=== PATIENT | female | born 1970 | race African-American/Black ===

== ENCOUNTER 2017-09-16 08:31 | Observation (INO) | payer MEDICAID ==
[~2017-09-16] VITALS: Ht 152.4 cm; Wt 81.5 kg
[~2017-09-16 08:31] MED LIST: CANA100T PO; EMPA1TAB PO; EXEN1INJ SQ; GLUCOMTESTSTRIPS XX; METF500 PO; ONETMIS7; ONETOUCH ULTRAULTRA
[2017-09-16 08:32] VITALS: BP 138/88; PULSE 73; RESP 16; TEMP 99.1; O2SAT 99
[2017-09-16] MEDS ORDERED: SODIUM CHLORIDE 0.9% FLUSH 10 ML FLUSH IVF PRN (09:30)
--- NOTE | 2017-09-16 09:42 | PD ---
HPI Chief Complaint: Chest Pain Time Seen by Provider: 09:25 Travel History International Travel<30 days: No Contact w/Intl Traveler<30days: No Traveled to known affect area: No History of Present Illness HPI 47-year-old female came to the emergency room with history of right sided chest pain that started this morning when she woke up. She has never had this kind of pain in the past. She describes the pain as a dull ache. No radiation of the pain. As per her the pain is worse when she moves or takes a deep breath in. Patient has not done anything out of the ordinary physically to cause the pain. She is not on any medications. Patient says 2 years ago she was told she has diabetes but has never taken any medications. No history of shortness of breath. No history of syncopal episode or diaphoresis. 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 Patient is a not a smoker. No family history of coronary artery disease. Patient says that she had a stress test when she was many years ago. No recent surgery or procedures. No recent long distance travel or prolonged immobilization. Vital signs were stable. [facility] Past Medical History Narrative Medical List of her past medical, surgical, social and family history is reviewed from the nursing note. Diabetes: Yes Patient Takes Glucophage: No Tetanus Vaccination: > 5 Years Influenza Vaccination: Yes ?: Not : 1 Para: 1 Tubal Ligation: Yes Past Surgical History Section: Yes Social History Alcohol Use: No Tobacco Use: No Substance Use: No Allergies-Medications (Allergen,Severity, Reaction): Coded Allergies: No Known Allergies (Verified Allergy, Unknown, 09/16/17) Comments No known drug allergies. Reported Meds & Prescriptions Reported Meds & Active Scripts Active Ibuprofen 600 Mg Tab 600 Mg PO Q8HR PRN 3 Days Take with food. Lisinopril 5 Mg Tab 5 Mg PO DAILY Metformin (Metformin HCl) 500 Mg Tab 500 Mg PO BIDPC Narrative Medication List of her home medications reviewed from the nursing note. Review of Systems Except as stated in HPI: all other systems reviewed are Neg Cardiovascular: Positive: Chest Pain or Discomfort Physical Exam Narrative GENERAL: Awake, alert, obese, mild distress SKIN: Focused skin assessment warm/dry. HEAD: Atraumatic. Normocephalic. EYES: Pupils equal and round. No scleral icterus. No injection or drainage. ENT: No nasal bleeding or discharge. Mucous membranes pink and moist. NECK: Trachea midline. No JVD. CARDIOVASCULAR: Regular rate and rhythm. No murmur appreciated. RESPIRATORY: No accessory muscle use. Clear to auscultation. Breath sounds equal bilaterally. GASTROINTESTINAL: Abdomen soft, non-tender, nondistended. Hepatic and splenic margins not palpable. MUSCULOSKELETAL: No obvious deformities. No clubbing. No cyanosis. No edema. NEUROLOGICAL: Awake and alert. No obvious cranial nerve deficits. Motor grossly within normal limits. Normal speech. PSYCHIATRIC: Appropriate mood and affect; insight and judgment normal. Data Data Last Documented VS Vital Signs Date Time Temp Pulse Resp B/P (MAP) Pulse Ox O2 Delivery O2 Flow Rate FiO2 09/16/17 10:27 120/79 (93) 120/86 (97) 09/16/17 09:01 Room Air 09/16/17 08:32 99.1 73 16 99 Orders Orders Electrocardiogram (09/16/17 ) Basic Metabolic Panel (Bmp) (09/16/17 09:28) Ckmb (Isoenzyme) Profile (09/16/17 09:28) Complete Blood Count With Diff (09/16/17 09:28) Magnesium (Mg) (09/16/17 09:28) Prothrombin Time / Inr (Pt) (09/16/17 09:28) Act Partial Throm Time (Ptt) (09/16/17 09:28) Troponin I (09/16/17 09:28) Chest, Single Ap (09/16/17 09:28) Ecg Monitoring (09/16/17 09:28) Bilateral Bp Monitoring (09/16/17 09:28) Iv Access Insert/Monitor (09/16/17 09:28) Oximetry (09/16/17 09:28) Oxygen Administration (09/16/17 09:28) Sodium Chloride 0.9% Flush (Ns Flush) (09/16/17 09:30) Aspirin Chew (Aspirin Chew) (09/17/17 09:00) Aspirin Chew (Aspirin Chew) (09/16/17 10:00) D-Dimer (09/16/17 09:57) Metformin (Glucophage) (09/16/17 10:45) Admit Order (Ed Use Only) (09/16/17 10:47) Labs Laboratory Tests Test 09/16/17 09:40 White Blood Count 7.1 TH/MM3 Red Blood Count 5.18 MIL/MM3 Hemoglobin 13.7 GM/DL Hematocrit 41.7 % Mean Corpuscular Volume 80.4 FL Mean Corpuscular Hemoglobin 26.4 PG Mean Corpuscular Hemoglobin Concent 32.8 % Red Cell Distribution Width 13.6 % Platelet Count 264 TH/MM3 Mean Platelet Volume 8.8 FL Neutrophils (%) (Auto) 57.2 % Lymphocytes (%) (Auto) 33.0 % Monocytes (%) (Auto) 7.1 % Eosinophils (%) (Auto) 1.8 % Basophils (%) (Auto) 0.9 % Neutrophils # (Auto) 4.1 TH/MM3 Lymphocytes # (Auto) 2.3 TH/MM3 Monocytes # (Auto) 0.5 TH/MM3 Eosinophils # (Auto) 0.1 TH/MM3 Basophils # (Auto) 0.1 TH/MM3 CBC Comment DIFF FINAL Differential Comment Prothrombin Time 10.7 SEC Prothromb Time International Ratio 1.0 RATIO Activated Partial Thromboplast Time 23.3 SEC D-Dimer Quantitative (PE/DVT) 0.43 MG/L FEU Blood Urea Nitrogen 10 MG/DL Creatinine 0.68 MG/DL Random Glucose 297 MG/DL Calcium Level 9.7 MG/DL Magnesium Level 2.0 MG/DL Sodium Level 136 MEQ/L Potassium Level 3.9 MEQ/L Chloride Level 102 MEQ/L Carbon Dioxide Level 25.4 MEQ/L Anion Gap 9 MEQ/L Estimat Glomerular Filtration Rate 113 ML/MIN Hemoglobin A1c 11.3 % Total Creatine Kinase 56 U/L Troponin I LESS THAN 0.02 NG/ML MDM Medical Decision Making Medical Screen Exam Complete: Yes Emergency Medical Condition: Yes Medical Record Reviewed: Yes Interpretation(s) Twelve-lead EKG was reviewed by me. Normal sinus rhythm, normal axis, nonspecific ST-T wave changes. Heart rate of 74 bpm. Differential Diagnosis ACS, non-STEMI, PE, nonspecific chest pain Narrative Course 10:45 AM blood test results of back and patient's blood sugar is significantly high. I have given her a dose of metformin. Patient certainly should get a workup to rule out ACS given her long-standing untreated diabetes. I will admit her to the chest pain center to be seen by the statistical financial analyst. Procedures EKG Prior to Arrival: No Diagnosis Primary Impression: Chest pain Qualified Codes: R07.9 - Chest pain, unspecified Additional Impressions: Diabetes Qualified Codes: E11.9 - Type 2 diabetes mellitus without complications Hyperglycemia due to type 2 diabetes mellitus Qualified Codes: E11.65 - Type 2 diabetes mellitus with hyperglycemia Admitting Information Admitting Physician Requests: Observation Scripts Ibuprofen (Ibuprofen) 600 Mg Tab 600 MG PO Q8HR Y for PAIN for 3 Days, TAB 0 Refills Take with food. Prov: Brittany Sullivan 09/16/17 Lisinopril (Lisinopril) 5 Mg Tab 5 MG PO DAILY for Blood Pressure Management, #30 TAB 2 Refills Prov: Brittany Sullivan 09/16/17 Metformin (Metformin) 500 Mg Tab 500 MG PO BIDPC for Blood Sugar Management, #60 TAB 2 Refills Prov: Brittany Sullivan 09/16/17 Alley Nation MD Sep 16, 2017 09:42
[2017-09-16] MEDS ORDERED: ASPIRIN 81 MG CHEW TAB CHEW ONE (10:00)
[2017-09-16 10:09] LABS: AUTOMATED NEUTROPHIL # 4.1 TH/MM3 (1.8-7.7); BASOPHIL # 0.1 TH/MM3 (0-0.2); BASOPHIL % 0.9 % (0.0-2.0); EOSINOPHIL # 0.1 TH/MM3 (0-0.4); EOSINOPHIL % 1.8 % (0.0-4.0); HEMATOCRIT 41.7 % (35.0-46.0); HEMOGLOBIN 13.7 GM/DL (11.6-15.3); LYMPHOCYTE # 2.3 TH/MM3 (1.0-4.8); MEAN CELL VOLUME 80.4 FL (80.0-100.0); MEAN CORPUSCULAR HEMOGLOBIN 26.4 PG (27.0-34.0); MEAN CORPUSCULAR HGB CONC 32.8 % (32.0-36.0); MEAN PLATELET VOLUME 8.8 FL (7.0-11.0); MONO % 7.1 % (0.0-8.0); MONOCYTE # 0.5 TH/MM3 (0-0.9); NEUT % 57.2 % (16.0-70.0); PLATELET COUNT 264 TH/MM3 (150-450); RED BLOOD COUNT 5.18 MIL/MM3 (4.00-5.30); RED CELL DISTRIBUTION WIDTH 13.6 % (11.6-17.2); WHITE BLOOD COUNT 7.1 TH/MM3 (4.0-11.0)
[2017-09-16 10:20] LABS: PROTHROMBIN TIME - PATIENT 10.7 SEC (9.8-11.6)
--- NOTE | 2017-09-16 10:22 | RADRPT ---
EXAM DATE/TIME: 09/16/2017 09:52 [place] COMPARISON: CHEST SINGLE AP, February 19, 2016, 15:28. INDICATIONS : Chest pain today. MEDICAL HISTORY : None. SURGICAL HISTORY : None. ENCOUNTER: Initial ACUITY: 1 day PAIN SCORE: 6/10 LOCATION: Bilateral chest FINDINGS: The heart is enlarged with mild interstitial edema. There is no pneumothorax. There is no evidence of or pleural effusion. Degenerative changes about both shoulders. CONCLUSION: Cardiomegaly with mild interstitial edema. Timur Marshall MD FACR on September 16, 2017 at 10:17 Board Certified Radiologist. This report was verified electronically.
[2017-09-16 10:27] VITALS: BP_SYST 120; BP_DIAS 79; BP_DIAS 86
[2017-09-16 10:29] LABS: BICARBONATE 25.4 MEQ/L (21.0-32.0); BLOOD UREA NITROGEN 10 MG/DL (7-18); CALCIUM 9.7 MG/DL (8.5-10.1); CHLORIDE 102 MEQ/L (98-107); CREATININE 0.68 MG/DL (0.50-1.00); GLOMERULAR FILTRATION RATE 113 ML/MIN (>89); GLUCOSE,RANDOM 297 MG/DL (74-106); SODIUM (NA) 136 MEQ/L (136-145)
[2017-09-16 10:34] LABS: TROPONIN I LESS THAN 0.02 NG/ML (0.02-0.05)
[2017-09-16] MEDS ORDERED: metFORMIN HCL 850 MG TAB PO ONE (10:45)
[2017-09-16] MEDS ORDERED: METF500T PO ×2 (10:47→14:29)
[2017-09-16] MEDS ORDERED: ACETAMINOPHEN 500 MG CPLT PO PRN (11:30)
[2017-09-16] MEDS ORDERED: NITROGLYCERIN 0.4 MG SL 25 TABS/BTL SL PRN (11:30)
[2017-09-16] MEDS ORDERED: ONDANSETRON HCL 4 MG/2 ML VIAL IV PUSH PRN (11:30)
[2017-09-16 12:11] VITALS: BP 123/81; PULSE 78; RESP 16; O2SAT 99
--- NOTE | 2017-09-16 12:20 | HHI.HP ---
HPI Primary Care Physician No Primary Care Physician Chief Complaint Chest pain History of Present Illness 47-year-old male with history of diabetes currently not on any medication presents to the emergency room for further evaluation chest pain. Onset upon awakening this morning. Location substernal. Characterized as sharp. No radiation of pain. No associated symptoms of nausea, vomiting, dyspnea, or diaphoresis. Duration constant. Taking a deep breath, movement, and palpation of area makes pain worse. No relieving factors. No recent illness, fever, or cough. Review of Systems General: No fatigue,weakness, fever, chills, or recent illness. Has been in her general state of health. Currently not taking any diabetic medications as she does not have a PCP. HEENT: No CALDERA, no vision changes CV: 2 views to have chest pain as stated above. RESP: No SOB, cough, sputum production, or recent URI. GI: No nausea, vomiting, or bowel changes. No change in appetite, no unintentional weight gain or weight loss. : No dysuria, urgency, or frequency MS: No discomfort, change in ROM, recent injury or trauma NEURO: No difficulty with balance, LOC, motor/sensory deficits PSYCH: No anxiety, depression, or situational stress. SKIN: No rashes, no concerning lesions Past Family Social History Allergies: Coded Allergies: No Known Allergies (Verified Allergy, Unknown, 09/16/17) Past Medical History Type II diabetes (diagnosed in 09/2016) Past Surgical History C section Reported Medications Reported Meds & Active Scripts Active None Active Ordered Medications Current Medications Medications (Trade) Dose Ordered Sig/Janeen Route Start Time Stop Time Status Last Admin (NS Flush) 2 ml UNSCH PRN IVF 09/16/17 09:30 (Aspirin Chew) 162 mg DAILY CHEW 09/17/17 09:00 (NS Flush) 2 ml BID IV FLUSH 09/16/17 21:00 UNV (Tylenol) 500 mg Q4H PRN PO 09/16/17 11:30 UNV (Zofran Inj) 4 mg Q6H PRN IV PUSH 09/16/17 11:30 UNV (Nitrostat Sl) 0.4 mg Q5M PRN SL 09/16/17 11:30 UNV (Aspirin) 325 mg DAILY PO 09/17/17 09:00 UNV Family History Noncontributory for early onset cardiovascular disease. Social History Known diabetes. No known hyperlipidemia, CAD, or hypertension. Lifelong nonsmoker. Denies any alcohol or illegal drug use. Endorses an active lifestyle. . Past Cardiac Testing None Physical Exam Vital Signs Vital Signs Date Time Temp Pulse Resp B/P (MAP) Pulse Ox O2 Delivery O2 Flow Rate FiO2 09/16/17 12:11 78 16 123/81 (95) 99 Room Air 09/16/17 10:27 120/79 (93) 120/86 (97) 09/16/17 09:01 Room Air 09/16/17 08:32 99.1 73 16 138/88 (105) 99 Room Air Physical Exam GENERAL: Alert WN, WD, NAD, pleasant, female HEAD: NC, AT EYES: Sclera clear, pupils equal and round ENT: Mucous membranes pink and moist NECK: Supple, no masses, trachea midline CV: RRR, without murmur, rub, gallop, no JVD, S1-S2 no S3-S4. Chest wall tender with palpation. RESP: Clear lungs throughout bilateral, no crackles, wheeze, rhonchi, symmetrical chest rise, nonlabored, able to speak in full sentences ABD: Soft, NT, ND, no masses, positive bowel tones EXT: Pulses +24, no dependent edema MS: Normal tone 4 extremities, no obvious deformities, full range of motion NEURO: CN II through CN XII grossly intact, motor strength 5/5, gait WNL PSYCH: A+O 3, pleasant affect, appropriate speech, mood, insight and judgment SKIN: Normal turgor, normal texture, no lesions, no rashes Laboratory Laboratory Tests Test 09/16/17 09:40 White Blood Count 7.1 Red Blood Count 5.18 Hemoglobin 13.7 Hematocrit 41.7 Mean Corpuscular Volume 80.4 Mean Corpuscular Hemoglobin 26.4 Mean Corpuscular Hemoglobin Concent 32.8 Red Cell Distribution Width 13.6 Platelet Count 264 Mean Platelet Volume 8.8 Neutrophils (%) (Auto) 57.2 Lymphocytes (%) (Auto) 33.0 Monocytes (%) (Auto) 7.1 Eosinophils (%) (Auto) 1.8 Basophils (%) (Auto) 0.9 Neutrophils # (Auto) 4.1 Lymphocytes # (Auto) 2.3 Monocytes # (Auto) 0.5 Eosinophils # (Auto) 0.1 Basophils # (Auto) 0.1 CBC Comment DIFF FINAL Differential Comment Prothrombin Time 10.7 Prothromb Time International Ratio 1.0 Activated Partial Thromboplast Time 23.3 D-Dimer Quantitative (PE/DVT) 0.43 Blood Urea Nitrogen 10 Creatinine 0.68 Random Glucose 297 Calcium Level 9.7 Magnesium Level 2.0 Sodium Level 136 Potassium Level 3.9 Chloride Level 102 Carbon Dioxide Level 25.4 Anion Gap 9 Estimat Glomerular Filtration Rate 113 Total Creatine Kinase 56 Troponin I LESS THAN 0.02 Result Diagram: 09/16/1740 09/16/17939 Imaging Last Impressions Chest X-Ray 09/16/17927 Signed Impressions: Service Date/Time: Saturday, September 16, 2017 09:52 - CONCLUSION: Cardiomegaly with mild interstitial edema. Timur Marshall MD FACR Course EKG NSR, no st segment changes. T wave inversion in lead III only. Caprini VTE Risk Assessment Caprini VTE Risk Assessment: No/Low Risk (score <= 1) Caprini Risk Assessment Model Point Value = 1 Point Value = 2 Point Value = 3 Point Value = 5 Age 41-60 Minor surgery BMI > 25 kg/m2 Swollen legs Varicose veins or History of unexplained or recurrent spontaneous Oral contraceptives or hormone replacement Sepsis (< 1 month) Serious lung disease, including pneumonia (< 1 month) Abnormal pulmonary function Acute myocardial infarction Congestive heart failure (< 1 month) History of inflammatory bowel disease Medical patient at bed rest Age 61-74 Arthroscopic surgery Major open surgery (> 45 min) Laparoscopic surgery (> 45 min) Malignancy Confined to bed (> 72 hours) Immobilizing plaster cast Central venous access Age >= 75 History of VTE Family history of VTE Factor V Leiden Prothrombin [id number] Lupus anticoagulant Anticardiolipin antibodies Elevated serum homocysteine Heparin-induced thrombocytopenia Other congenital or acquired thrombophilia Stroke (< 1 month) Elective arthroplasty Hip, pelvis, or leg fracture Acute spinal cord injury (< 1 month) Prophylaxis Regimen Total Risk Factor Score Risk Level Prophylaxis Regimen 0-1 Low Early ambulation 2 Moderate Order ONE of the following: *Sequential Compression Device (SCD) *Heparin 5000 units SQ BID 3-4 Higher Order ONE of the following medications: *Heparin 5000 units SQ TID *Enoxaparin/Lovenox 40 mg SQ daily (WT < 150 kg, CrCl > 30 mL/min) *Enoxaparin/Lovenox 30 mg SQ daily (WT < 150 kg, CrCl > 10-29 mL/min) *Enoxaparin/Lovenox 30 mg SQ BID (WT < 150 kg, CrCl > 30 mL/min) AND/OR *Sequential Compression Device (SCD) 5 or more Highest Order ONE of the following medications: *Heparin 5000 units SQ TID (Preferred with Epidurals) *Enoxaparin/Lovenox 40 mg SQ daily (WT < 150 kg, CrCl > 30 mL/min) *Enoxaparin/Lovenox 30 mg SQ daily (WT < 150 kg, CrCl > 10-29 mL/min) *Enoxaparin/Lovenox 30 mg SQ BID (WT < 150 kg, CrCl > 30 mL/min) AND *Sequential Compression Device (SCD) Assessment and Plan Assessment and Plan #1 Chest wall pain-admitted to chest pain center. Seen and evaluated by Dr. Shmuel Miranda. Ruled out with x1 EKG and cardiac enzyme. Proceed with exercise stress test. If unremarkable, will discharge home. Case management consult for possible admission to [facility]. #2 Diabetes-SSI low dose coverage, plans to discharge home with Metformin and Lisinopril. Discussed in length regarding tight blood glucose control. Diabetic diet education discussed. Encouraged getting a routine eye exam. Instructed to call [facility] to establish primary care services. Increase daily activity, work on weight loss, and decrease sugar intake including drinks. Notified of HgA1C is pending and originally ordered for [facility] , instructed to call for results and to notify her new PCP lab completed here. 14:15 Spoke with case management. [facility] closed 2 weeks ago and patient's are being referred to Brittany Sullivan Sep 16, 2017 12:20
[2017-09-16 12:56] VITALS: BP 159/93; PULSE 77; RESP 20; TEMP 98.3; O2SAT 96
[2017-09-16] MEDS ORDERED: DEXTROSE 50% IN WATER 50 ML VIAL(D50) IV PUSH PRN (14:15)
[2017-09-16] MEDS ORDERED: GLUCAGON 1 MG/ML VIAL OTHER PRN (14:15)
[2017-09-16] MEDS ORDERED: LISINOPRIL 5 MG TAB PO ONE (14:15)
[2017-09-16] MEDS ORDERED: LISI-519 PO (14:29)
[2017-09-16] MEDS ORDERED: IBUP-232 PO (14:29)
--- NOTE | 2017-09-16 14:29 | HHI.DCPOC ---
Discharge Care Plan Diagnosis: (1) Musculoskeletal chest pain (2) Type 2 diabetes mellitus Goals to Promote Your Health * To prevent worsening of your condition and complications * To maintain your health at the optimal level Directions to Meet Your Goals Take your medications as prescribed Follow your dietary instruction Follow activity as directed Keep your appointments as scheduled Take your immunizations and boosters as scheduled If your symptoms worsen call your PCP, if no PCP go to Urgent Care Center or Emergency Room Smoking is Dangerous to Your Health. Avoid second hand smoke Call the 24-hour hour crisis hotline for domestic abuse at Brittany Sullivan Sep 16, 2017 14:29
--- NOTE | 2017-09-16 14:29 | HHI.DCPOC ---
Discharge Care Plan Diagnosis: (1) Musculoskeletal chest pain (2) Type 2 diabetes mellitus Goals to Promote Your Health * To prevent worsening of your condition and complications * To maintain your health at the optimal level Directions to Meet Your Goals Take your medications as prescribed Follow your dietary instruction Follow activity as directed Keep your appointments as scheduled Take your immunizations and boosters as scheduled If your symptoms worsen call your PCP, if no PCP go to Urgent Care Center or Emergency Room Smoking is Dangerous to Your Health. Avoid second hand smoke Call the 24-hour hour crisis hotline for domestic abuse at Brittany Sullivan Sep 16, 2017 14:29
--- NOTE | 2017-09-16 14:29 | HHI.DCPOC ---
Discharge Care Plan Diagnosis: (1) Musculoskeletal chest pain (2) Type 2 diabetes mellitus Goals to Promote Your Health * To prevent worsening of your condition and complications * To maintain your health at the optimal level Directions to Meet Your Goals Take your medications as prescribed Follow your dietary instruction Follow activity as directed Keep your appointments as scheduled Take your immunizations and boosters as scheduled If your symptoms worsen call your PCP, if no PCP go to Urgent Care Center or Emergency Room Smoking is Dangerous to Your Health. Avoid second hand smoke Call the 24-hour hour crisis hotline for domestic abuse at Brittany Sullivan Sep 16, 2017 14:29
[2017-09-16 15:00] VITALS: PULSE 83
[2017-09-16] MEDS ORDERED: INSULIN ASPART 1,000 UNITS/10 ML VIAL SQ ONE (15:00)
[2017-09-16] MEDS ORDERED: INSULIN ASPART SUPPLEMENTAL SCALE SQ SCH (17:00)
[2017-09-16 19:10] LABS: HEMOGLOBIN A1C 11.3 % (4.3-6.0)
[2017-09-16] MEDS ORDERED: SODIUM CHLORIDE 0.9% FLUSH 10 ML FLUSH IV FLUSH SCH (21:00)
[2017-09-17] MEDS ORDERED: ASPIRIN 81 MG CHEW TAB CHEW SCH (09:00)
[2017-09-17] MEDS ORDERED: ASPIRIN 325 MG TAB PO SCH (09:00)
--- NOTE | 2017-09-18 08:17 | EKG ---
Date Performed: 09/16/2017 Time Performed: 15:36:02 PTAGE: 47 years EKG: Sinus rhythm NONSPECIFIC T-WAVE ABNORMALITY BORDERLINE ECG PREVIOUS TRACING : 09/16/2017 12.07 Since previous tracing, non specific T wave changes are pre sent DOCTOR: Shmuel Miranda Interpretating Date/Time 09/18/2017 08:16:10
--- NOTE | 2017-09-18 08:19 | EKG ---
Date Performed: 09/16/2017 Time Performed: 12:07:25 PTAGE: 47 years EKG: Sinus rhythm NORMAL ECG PREVIOUS TRACING : 09/16/2017 08.55 Since previous tracing, no significant change noted DOCTOR: Shmuel Miranda Interpretating Date/Time 09/18/2017 08:17:33
--- NOTE | 2017-09-18 08:20 | EKG ---
Date Performed: 09/16/2017 Time Performed: 08:55:38 PTAGE: 47 years EKG: Sinus rhythm NORMAL ECG PREVIOUS TRACING : 02/19/2016 13.56 Since previous tracing, no significant change noted DOCTOR: Shmuel Miranda Interpretating Date/Time 09/18/2017 08:18:11
--- NOTE | 2017-09-21 09:04 | TR ---
Date Performed: 09/16/2017 Time Performed: 13:18:54 DOCTOR: Shmuel Miranda DRUG LIST: CLINICAL HISTORY: REASON FOR TEST: REASON FOR ENDING: OBSERVATION: CONCLUSION: Gildardo protocol completed. Stopped sec to exceeding target heart rate and leg fatigue . Maximum EC=475 Target HR Achieved=93.0% Maximum YY=228/88 Total Exercise Time=5:03. No reprod chest pain. No ectopy. No st segment changes. T wave inversion lead III prior and during exam. Normal bp r esponse. Good exercise tolerance. Recovery quick and unremarkable. COMMENTS: Patient exercised using the Gildardo protocol. No electrocardiographic changes were seen to suggest ischemia. Hemodynamic response to exercise was normal. No significant arrhythmia was prese nt.
--- NOTE | 2017-09-21 09:04 | TR ---
Date Performed: 09/16/2017 Time Performed: 13:18:54 DOCTOR: Shmuel Miranda DRUG LIST: CLINICAL HISTORY: REASON FOR TEST: REASON FOR ENDING: OBSERVATION: CONCLUSION: Gildardo protocol completed. Stopped sec to exceeding target heart rate and leg fatigue . Maximum TV=617 Target HR Achieved=93.0% Maximum MI=528/88 Total Exercise Time=5:03. No reprod chest pain. No ectopy. No st segment changes. T wave inversion lead III prior and during exam. Normal bp r esponse. Good exercise tolerance. Recovery quick and unremarkable. COMMENTS: Patient exercised using the Gildardo protocol. No electrocardiographic changes were seen to suggest ischemia. Hemodynamic response to exercise was normal. No significant arrhythmia was prese nt.
--- NOTE | 2017-09-21 09:04 | TR ---
Date Performed: 09/16/2017 Time Performed: 13:18:54 DOCTOR: Shmuel Miranda DRUG LIST: CLINICAL HISTORY: REASON FOR TEST: REASON FOR ENDING: OBSERVATION: CONCLUSION: Gildardo protocol completed. Stopped sec to exceeding target heart rate and leg fatigue . Maximum HA=075 Target HR Achieved=93.0% Maximum SB=883/88 Total Exercise Time=5:03. No reprod chest pain. No ectopy. No st segment changes. T wave inversion lead III prior and during exam. Normal bp r esponse. Good exercise tolerance. Recovery quick and unremarkable. COMMENTS: Patient exercised using the Gildardo protocol. No electrocardiographic changes were seen to suggest ischemia. Hemodynamic response to exercise was normal. No significant arrhythmia was prese nt.
== END 2017-09-16 16:03 | disposition home or self-care (01) ==
LOC: NEPE 08:31 → NEDA 10:49 → NEPGCP 12:54
PROVIDERS: ADMIT Internal Medicine Cardiovascular Disease; ATTEND Internal Medicine Cardiovascular Disease
DX: R07.89 Other chest pain (principal); E11.65 Type 2 diabetes mellitus with hyperglycemia
CPT/HCPCS: 71010; 80048; 82550; 82948; 83036; 83735; 84484; 85025; 85379; 85610; 85730; 93005; 93017; 99285; G0378; J1815